=== PATIENT | male | born 1995 | race Caucasian/White ===

== ENCOUNTER 2017-12-15 20:22 | Emergency (ER) | payer OTHER ==
--- NOTE | 2017-12-15 20:52 | ERPHSYRPT ---
- History of Present Illness Time Seen by Provider: 12/15/17 20:47 Source: patient Exam Limitations: no limitations Patient Subjective Stated Complaint: pt states he got drunk last night and was told he fell several times. states when he woke up he was having pain in his lt ribs. Triage Nursing Assessment: pt alert and oriented, asnwers questions approp. pt ambulatory with steady gait noted. pt holding lt ribs. respirations nonlabored with lungs cta. Physician History: The patient is a 22-year-old male who comes in complaining that he got drunk for the first time last night and was told that he had fallen several times. He woke up today around 2 PM and noticed that his left ribs were hurting. He also noticed that his left abdomen was hurting. He says his left back also hurts. He vomited last night. He vomited this morning. He has not vomited the rest of the day. His past medical history is unremarkable. Occurred: yesterday Reason for Fall: lost balance (from alcohol consumption), fell from standing pos Injuries/Pain Location: chest, abdomen, back Loss of Consciousness: unsure Quality: aching Severity of Pain-Max: moderate Severity of Pain-Current: moderate Modifying Factors: Improves With: pain medication (ibuprofen) Associated Symptoms (Fall): abdominal pain, back pain, chest pain (rib pain), nausea, vomiting Allergies/Adverse Reactions: No Known Drug Allergies Allergy (Verified 12/15/17 20:46) Home Medications: Cetirizine HCl [Zyrtec] 10 mg PO DAILY 12/15/17 [History] Hx Tetanus, Diphtheria Vaccination/Date Given: Yes Hx Influenza Vaccination/Date Given: No Hx Pneumococcal Vaccination/Date Given: No Immunizations Up to Date: Yes - Review of Systems Constitutional: No Fever, No Chills Eyes: No Symptoms Ears, Nose, & Throat: No Symptoms Respiratory: No Cough, No Dyspnea Cardiac: Chest Pain Abdominal/Gastrointestinal: Abdominal Pain, Nausea, Vomiting Genitourinary Symptoms: No Dysuria Musculoskeletal: Fall, Injury Skin: No Rash Neurological: No Dizziness, No Focal Weakness, No Sensory Changes Psychological: No Symptoms Endocrine: No Symptoms Hematologic/Lymphatic: No Symptoms Immunological/Allergic: No Symptoms All Other Systems: Reviewed and Negative - Past Medical History Pertinent Past Medical History: Yes Respiratory History: Asthma - Past Surgical History Past Surgical History: No - Social History Smoking Status: Never smoker Exposure to second hand smoke: No Patient Lives Alone: No - Nursing Vital Signs Nursing Vital Signs: Initial Vital Signs Temperature 99 F 12/15/17 20:39 Blood Pressure 133/75 12/15/17 20:39 Pain Scale Pain Intensity 6 - Farhan Coma Score Best Eye Response (Farhan): (4) open spontaneously Best Verbal Response ([place]ounds): (5) oriented Best Motor Response (Farhan): (6) obeys commands [place] Total: 15 - Physical Exam General Appearance: no apparent distress, alert Head Injury: no evidence of injury Eye Exam: PERRL/EOMI ENT Exam: airway nml Neck Exam: normal inspection, No tenderness Respiratory/Chest Exam: normal breath sounds, rib tenderness (left lower ribs), No ecchymosis, No palpable fracture Cardiovascular Exam: normal heart sounds, regular rate/rhythm Gastrointestinal Exam: tenderness (LUQ) Rectal Exam: not done Extremity Exam: normal inspection, normal range of motion, pelvis stable, No deformities Neurologic Exam: alert, oriented x 3, cooperative, sensation nml, No motor deficits Skin Exam: normal color, warm, dry SpO2 Interpretation: normal Oxygen Delivery: Room Air - Radiology Exams Chest X-ray Interpretation: Interpreted by me, Negative, No Pneumothorax Left Ribs X-ray Interpretation: Interpreted by me, Negative, No Fracture, No Pneumothorax Abdomen X-ray Interpretation: Interpreted by me, Negative Ordered Tests: Active Orders 24 hr Category Date Time Status Clean Catch Urine Specimen STAT Care 12/15/17 20:52 Active IV Insertion STAT Care 12/15/17 20:52 Active CHEST 2 VIEWS (PA AND LAT) Stat Exams 12/15/17 21:21 Taken KUB Stat Exams 12/15/17 20:52 Taken RIBS UNILATERAL Stat Exams 12/15/17 20:53 Taken CBC W DIFF Stat Lab 12/15/17 21:00 Completed CMP Stat Lab 12/15/17 21:00 Completed LIPASE Stat Lab 12/15/17 21:00 Completed UA W/RFX UR CULTURE Stat Lab 12/15/17 21:49 Ordered Medication Summary Discontinued Medications Generic Name Dose Route Start Last Admin Trade Name Freq PRN Reason Stop Dose Admin Sodium Chloride 1,000 mls @ 999 mls/hr 12/15/17 20:52 12/15/17 21:13 Sodium Chloride 0.9% 1000 Ml IV 12/15/17 21:52 999 mls/hr .Q1H1M STA Administration Sodium Chloride Confirm 12/15/17 21:09 Sodium Chloride 0.9% 1000 Ml Administered 12/15/17 21:10 Dose 1,000 mls @ ud .ROUTE .STK-MED ONE Ketorolac Tromethamine 30 mg 12/15/17 20:52 12/15/17 21:13 Toradol 30 Mg Injection IV 12/15/17 20:53 30 mg STAT ONE Administration Ketorolac Tromethamine Confirm 12/15/17 21:09 Toradol 30 Mg Injection Administered 12/15/17 21:10 Dose 30 mg .ROUTE .STK-MED ONE Ondansetron HCl 4 mg 12/15/17 20:52 12/15/17 21:13 Zofran 4 Mg/2 Ml Vial IV 12/15/17 20:53 4 mg STAT ONE Administration Ondansetron HCl Confirm 12/15/17 21:09 Zofran 4 Mg/2 Ml Vial Administered 12/15/17 21:10 Dose 4 mg .ROUTE .STK-MED ONE Lab/Rad Data: Laboratory Result Diagrams 12/15/17 21:00 12/15/17 21:00 Laboratory Results 12/15/17 12/15/17 Range/Units 21:00 21:00 WBC 9.6 (4.0-10.5) K/mm3 RBC 5.56 (4.1-5.6) M/mm3 Hgb 15.8 (12.5-18.0) gm/dl Hct 45.5 (42-50) % MCV 81.8 (78-100) fl MCH 28.4 (26-32) pg MCHC 34.7 (32-36) g/dl RDW 13.3 (11.5-14.0) % Plt Count 212 (150-450) K/mm3 MPV 10.6 H (6-9.5) fl Gran % 66.3 H (36.0-66.0) % Eos # (Auto) 0.31 (0-0.5) Absolute Lymphs (auto) 2.02 (1.0-4.6) Absolute Monos (auto) 0.87 (0.0-1.3) Lymphocytes % 21.1 L (24.0-44.0) % Monocytes % 9.1 (0.0-12.0) % Eosinophils % 3.2 (0.00-5.0) % Basophils % 0.3 (0.0-0.4) % Absolute Granulocytes 6.33 (1.4-6.9) Basophils # 0.03 (0-0.4) Sodium 146 H (137-145) mmol/L Potassium 4.0 (3.5-5.1) mmol/L Chloride 108 H (98-107) mmol/L Carbon Dioxide 26 (22-30) mmol/L Anion Gap 15.9 H (5-15) MEQ/L BUN 15 (9-20) mg/dL Creatinine 1.04 (0.66-1.25) mg/dL Estimated GFR > 60.0 ML/MIN Glucose 90 (74-106) mg/dL Calcium 9.7 (8.4-10.2) mg/dL Total Bilirubin 0.60 (0.2-1.3) mg/dL AST 23 (17-59) U/L ALT 20 (0-50) U/L Alkaline Phosphatase 64 (38-126) U/L Serum Total Protein 8.3 H (6.3-8.2) g/dL Albumin 4.7 (3.5-5.0) g/dL Lipase 114 (23-300) U/L - Progress Progress: improved Counseled pt/family regarding: diagnosis, rad results - Departure Time of Disposition: 21:58 Departure Disposition: Home Clinical Impression: Contusion of rib on left side Condition: Stable Critical Care Time: No Referrals: DOCTOR,NO FAMILY [Primary Care Provider] - Additional Instructions: You have a contusion to your left rib cage. Your xrays did not show any broken ribs. You were given Toradol 30 mg, Zofran 4 mg, and fluids by IV in the ER. Take Tylenol 1000 mg and ibuprofen 800 mg every 8 hours as needed. Follow-up with your primary care physician if no better after 1 day.
[2017-12-15] MEDS ORDERED: Sodium Chloride 0.9% 1000 ML 1,000 ML ONE (21:09)
[2017-12-15] MEDS ORDERED: Zofran 4 MG/2 ML VIAL ONE (21:09)
[2017-12-15] MEDS ORDERED: TORAdol 30 mg Injection ONE (21:09)
[2017-12-15] MEDS: Zofran 4 MG/2 ML VIAL IV ONE (21:13)
[2017-12-15] MEDS: TORAdol 30 mg Injection IV ONE (21:13)
[2017-12-15] MEDS: Sodium Chloride 0.9% 1000 ML 1,000 ML IV STA (21:13)
[2017-12-15 21:20] LABS: BASOPHIL % 0.3 % (0.0-0.4); Basophil (Absolute #) 0.03 (0-0.4); Eosinophil % 3.2 % (0.00-5.0); Eosinophil (Absolute #) 0.31 (0-0.5); Granulocyte Absolute (ANC) 6.33 (1.4-6.9); Granulocytes % 66.3 % (36.0-66.0); Hematocrit 45.5 % (42-50); Hemoglobin 15.8 gm/dl (12.5-18.0); Lymphocyte (Absolute #) 2.02 (1.0-4.6); Lymphocytes % 21.1 % (24.0-44.0); Mean Cell Volume 81.8 fl (78-100); Mean Corpuscular Hemoglobin 28.4 pg (26-32); Mean Corpuscular Hgb Concent. 34.7 g/dl (32-36); Mean Platelet Volume 10.6 fl (6-9.5); Monocyte (Absolute #) 0.87 (0.0-1.3); Monocytes % 9.1 % (0.0-12.0); Platelet Count 212 K/mm3 (150-450); Red Blood Count 5.56 M/mm3 (4.1-5.6); Red Cell Distribution Width 13.3 % (11.5-14.0); White Blood Count 9.6 K/mm3 (4.0-10.5)
[2017-12-15 21:36] LABS: ALBUMIN 4.7 g/dL (3.5-5.0); ALKALINE PHOSPHATASE 64 U/L (38-126); ANION GAP 15.9 MEQ/L (5-15); BLOOD UREA NITROGEN 15 mg/dL (9-20); CHLORIDE 108 mmol/L (98-107); Calcium 9.7 mg/dL (8.4-10.2); Carbon Dioxide 26 mmol/L (22-30); Creatinine 1 1.04 mg/dL (0.66-1.25); Glucose 90 mg/dL (74-106); LIPASE 114 U/L (23-300); SGOT/AST 23 U/L (17-59); SGPT/ALT 20 U/L (0-50); SODIUM 146 mmol/L (137-145); Total Protein 8.3 g/dL (6.3-8.2)
[2017-12-15 22:31] LABS: Appearance CLEAR (CLEAR); Bilirubin NEGATIVE (NEGATIVE); Blood NEGATIVE Ery/ul (0-5); Glucose NEGATIVE (NEGATIVE); Ketones NEGATIVE (NEGATIVE); Leukocyte Esterase NEGATIVE (NEGATIVE); Nitrite NEGATIVE (NEGATIVE); Protein,Urine Dip NEGATIVE (Negative); Specific Gravity 1.015 (1.005-1.025); Urobilinogen NORMAL mg/dL (0-1)
[2017-12-15 23:31] VITALS: BP 122/74; PULSE 72; O2SAT 97
--- NOTE | 2017-12-16 08:34 | XRAY ---
Indication: Left sided pain following fall. Comparison: None PA/lateral chest demonstrates normal heart, lungs, and bony thorax.
--- NOTE | 2017-12-16 08:34 | XRAY ---
Indication: Pain following fall. Comparison: None 2 views of the left ribs obtained. No bony, articular, or soft tissue abnormalities.
--- NOTE | 2017-12-16 08:34 | XRAY ---
Indication: Left sided pain following fall. Comparison: None KUB nonacute and nonobstructed. Solid organs and osseous structures unremarkable.
== END 2017-12-15 23:31 | disposition home or self-care (01) ==
LOC: EDBD 20:22 → ED 20:22
DX: S20.20XA Contusion of thorax, unspecified, initial encounter (principal); R07.9 Chest pain, unspecified; R10.9 Unspecified abdominal pain; M54.9 Dorsalgia, unspecified; R11.2 Nausea with vomiting, unspecified; W19.XXXA Unspecified fall, initial encounter
CPT/HCPCS: 36000; 36415; 71046; 71100; 74018; 80053; 81002; 83690; 85025; 96360; 96361; 96372; 96374; 99284; J1885; J2405

== ENCOUNTER 2018-01-18 21:39 | Emergency (ER) | payer OTHER ==
--- NOTE | 2018-01-18 22:51 | ERPHSYRPT ---
- History of Present Illness Time Seen by Provider: 01/18/18 22:42 Historian: patient Exam Limitations: no limitations Patient Subjective Stated Complaint: chest pain that radiates to the back Triage Nursing Assessment: Ptg A&O x3, c/o of pain in mid upper portion of abdomen and states that it radiates to the back, lightheadedness, pulses normal , bowel sounds heard in all 4 quadrants, vitals wnl with the exception of respirations fluctuating between 20-26 Physician History: The patient is a 22-year-old male complaining of a sudden onset of epigastric pain with a funny taste in his mouth while he was lying in bed about an hour and a half ago. The pain has lessened since being in the ER and sitting upright. He has not eaten in the last 9 or 10 hours. He denies nausea or vomiting. 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 His past medical history is unremarkable. Timing/Duration: today, hour(s) (07 21/2), sudden, improved Activities at Onset: rest Quality: burning, sharpness Abdominal Pain Onset Location: epigastric Pain Radiation: back Severity of Pain-Max: moderate Severity of Pain-Current: mild Modifying Factors: Improves With: nothing Associated Symptoms: denies symptoms Previous symptoms: no prior history Allergies/Adverse Reactions: No Known Drug Allergies Allergy (Verified 01/18/18 21:58) Home Medications: No Reportable Medications [No Reported Medications] 01/18/18 [History] Hx Tetanus, Diphtheria Vaccination/Date Given: Yes Hx Influenza Vaccination/Date Given: No Hx Pneumococcal Vaccination/Date Given: No - Review of Systems Constitutional: No Fever, No Chills Eyes: No Symptoms Ears, Nose, & Throat: No Symptoms Respiratory: No Cough, No Dyspnea Cardiac: No Chest Pain, No Edema, No Syncope Abdominal/Gastrointestinal: Abdominal Pain Genitourinary Symptoms: No Dysuria Musculoskeletal: No Back Pain, No Neck Pain Skin: No Rash Neurological: No Dizziness, No Focal Weakness, No Sensory Changes Psychological: No Symptoms Endocrine: No Symptoms Hematologic/Lymphatic: No Symptoms Immunological/Allergic: No Symptoms All Other Systems: Reviewed and Negative - Past Medical History Pertinent Past Medical History: Yes Respiratory History: Asthma - Past Surgical History Past Surgical History: No - Social History Smoking Status: Never smoker Exposure to second hand smoke: No Drug Use: none Patient Lives Alone: No - Nursing Vital Signs Nursing Vital Signs: Initial Vital Signs Temperature 98.2 F 01/18/18 21:47 Pulse Rate 73 01/18/18 21:47 Respiratory Rate 20 01/18/18 21:47 Blood Pressure 117/76 01/18/18 21:47 O2 Sat by Pulse Oximetry 100 01/18/18 21:47 Pain Scale Pain Intensity 6 - Physical Exam General Appearance: mild distress Eye Exam: PERRL/EOMI, eyes nml inspection Ears, Nose, Throat Exam: normal ENT inspection, pharynx normal, moist mucous membranes Neck Exam: normal inspection, non-tender, supple, full range of motion Respiratory Exam: normal breath sounds, lungs clear, No respiratory distress Cardiovascular Exam: regular rate/rhythm, normal heart sounds Gastrointestinal/Abdomen Exam: tenderness (epigastric) Rectal Exam: not done Back Exam: normal inspection, normal range of motion, No CVA tenderness, No vertebral tenderness Extremity Exam: normal inspection, normal range of motion, pelvis stable Neurologic Exam: alert, oriented x 3, cooperative, normal mood/affect, nml cerebellar function, sensation nml, No motor deficits Skin Exam: normal color, warm, dry SpO2 Interpretation: normal SpO2: 98 Oxygen Delivery: Room Air - Course EKG Interpreted by Me: RATE, Sinus Rhythm, NORMAL AXIS, NORMAL INTERVALS, NORMAL QRS, NORMAL ST-T - Radiology Exams Chest X-ray Interpretation: Interpreted by me, Negative Abdomen X-ray Interpretation: Interpreted by me, Negative Ordered Tests: Active Orders 24 hr Category Date Time Status EKG-ER Only STAT Care 01/18/18 22:54 Active IV Insertion STAT Care 01/18/18 22:54 Active CHEST 2 VIEWS (PA AND LAT) Stat Exams 01/18/18 22:54 Taken KUB Stat Exams 01/18/18 22:56 Taken CBC W DIFF Stat Lab 01/18/18 22:54 Completed CMP Stat Lab 01/18/18 22:54 Completed LIPASE Stat Lab 01/18/18 22:54 Completed TROPONIN Q3H Lab 01/18/18 23:00 Completed TROPONIN Q3H Lab 01/19/18 02:00 Ordered TROPONIN Q3H Lab 01/19/18 05:00 Ordered TROPONIN Q3H Lab 01/19/18 08:00 Ordered TROPONIN Q3H Lab 01/19/18 11:00 Ordered Medication Summary Discontinued Medications Generic Name Dose Route Start Last Admin Trade Name Karan PRN Reason Stop Dose Admin Al Hydrox/Mg Hydrox/Simethicone Confirm 01/18/18 23:02 Maalox Es 30 Ml Unit Dose Administered 01/18/18 23:03 Dose 30 ml .ROUTE .STK-MED ONE Famotidine 20 mg 01/18/18 22:54 01/18/18 23:09 Pepcid 20 Mg Vial IV 01/18/18 22:55 20 mg STAT ONE Administration Famotidine Confirm 01/18/18 23:01 Pepcid 20 Mg Vial Administered 01/18/18 23:02 Dose 20 mg IV .STK-MED ONE Sodium Chloride 1,000 mls @ 999 mls/hr 01/18/18 22:54 01/18/18 23:10 Sodium Chloride 0.9% 1000 Ml IV 01/18/18 23:54 999 mls/hr .Q1H1M STA Administration Sodium Chloride Confirm 01/18/18 23:02 Sodium Chloride 0.9% 1000 Ml Administered 01/18/18 23:03 Dose 1,000 mls @ ud .ROUTE .STK-MED ONE Lidocaine HCl Confirm 01/18/18 23:02 Xylocaine Hcl Viscous * Administered 01/18/18 23:03 Dose 15 ml .ROUTE .STK-MED ONE Magnesium Hydroxide 45 ml 01/18/18 22:54 01/18/18 23:09 Gi Cocktail 45 Ml (Maalox/Lidocaine) PO 01/18/18 22:55 45 ml STAT ONE Administration Ondansetron HCl 4 mg 01/18/18 22:54 01/18/18 23:10 Zofran 4 Mg/2 Ml Vial IV 01/18/18 22:55 4 mg STAT ONE Administration Ondansetron HCl Confirm 01/18/18 23:01 Zofran 4 Mg/2 Ml Vial Administered 01/18/18 23:02 Dose 4 mg .ROUTE .STK-MED ONE Lab/Rad Data: Laboratory Result Diagrams 01/18/18 22:54 01/18/18 22:54 Laboratory Results 01/18/18 01/18/18 01/18/18 Range/Units 23:00 22:54 22:54 WBC 6.0 (4.0-10.5) K/mm3 RBC 5.49 (4.1-5.6) M/mm3 Hgb 15.7 (12.5-18.0) gm/dl Hct 45.0 (42-50) % MCV 82.0 (78-100) fl MCH 28.6 (26-32) pg MCHC 34.9 (32-36) g/dl RDW 13.6 (11.5-14.0) % Plt Count 195 (150-450) K/mm3 MPV 11.1 H (6-9.5) fl Gran % 48.7 (36.0-66.0) % Eos # (Auto) 0.29 (0-0.5) Absolute Lymphs (auto) 2.27 (1.0-4.6) Absolute Monos (auto) 0.50 (0.0-1.3) Lymphocytes % 37.9 (24.0-44.0) % Monocytes % 8.3 (0.0-12.0) % Eosinophils % 4.8 (0.00-5.0) % Basophils % 0.3 (0.0-0.4) % Absolute Granulocytes 2.91 (1.4-6.9) Basophils # 0.02 (0-0.4) Sodium 144 (137-145) mmol/L Potassium 4.0 (3.5-5.1) mmol/L Chloride 107 (98-107) mmol/L Carbon Dioxide 26 (22-30) mmol/L Anion Gap 14.6 (5-15) MEQ/L BUN 13 (9-20) mg/dL Creatinine 0.91 (0.66-1.25) mg/dL Estimated GFR > 60.0 ML/MIN Glucose 89 (74-106) mg/dL Calcium 9.6 (8.4-10.2) mg/dL Total Bilirubin 0.50 (0.2-1.3) mg/dL AST 21 (17-59) U/L ALT 17 (0-50) U/L Alkaline Phosphatase 57 (38-126) U/L Troponin I < 0.012 (0.000-0.034) ng/mL Serum Total Protein 8.0 (6.3-8.2) g/dL Albumin 4.7 (3.5-5.0) g/dL Lipase 137 (23-300) U/L - Progress Progress: improved Progress Note: 01/19/18 00:06 GI cocktail resolved pain. Counseled pt/family regarding: lab results, diagnosis, rad results - Departure Time of Disposition: 00:07 Departure Disposition: Home Clinical Impression: Reflux gastritis Condition: Stable Critical Care Time: No Referrals: DOCTOR,NO FAMILY [Primary Care Provider] - Additional Instructions: You had an episode of gastric reflux. You were given a GI cocktail in the ER. For periodic reflux take [id number] Tums, Maalox, or Zantac. Try not to eat at least 2 hours before going to bed. Follow-up with your primary medical doctor as needed.
[2018-01-18] MEDS ORDERED: Sodium Chloride 0.9% 1000 ML 1,000 ML IV STA (22:54)
[2018-01-18] MEDS ORDERED: Zofran 4 MG/2 ML VIAL IV ONE (22:54)
[2018-01-18] MEDS ORDERED: Pepcid 20 MG VIAL IV ONE ×2 (22:54→23:01)
[2018-01-18] MEDS ORDERED: GI COCKTAIL 45 ML (Maalox/Lidocaine) PO ONE (22:54)
[2018-01-18] MEDS ORDERED: Zofran 4 MG/2 ML VIAL ONE (23:01)
[2018-01-18] MEDS ORDERED: Sodium Chloride 0.9% 1000 ML 1,000 ML ONE (23:02)
[2018-01-18] MEDS ORDERED: XYLOCAINE HCl Viscous ONE (23:02)
[2018-01-18] MEDS ORDERED: MAALOX ES 30 ML UNIT DOSE ONE (23:02)
[2018-01-18 23:24] LABS: BASOPHIL % 0.3 % (0.0-0.4); Basophil (Absolute #) 0.02 (0-0.4); Eosinophil % 4.8 % (0.00-5.0); Eosinophil (Absolute #) 0.29 (0-0.5); Granulocyte Absolute (ANC) 2.91 (1.4-6.9); Granulocytes % 48.7 % (36.0-66.0); Hemoglobin 15.7 gm/dl (12.5-18.0); Lymphocyte (Absolute #) 2.27 (1.0-4.6); Lymphocytes % 37.9 % (24.0-44.0); Mean Corpuscular Hemoglobin 28.6 pg (26-32); Mean Corpuscular Hgb Concent. 34.9 g/dl (32-36); Mean Platelet Volume 11.1 fl (6-9.5); Monocytes % 8.3 % (0.0-12.0); Platelet Count 195 K/mm3 (150-450); Red Blood Count 5.49 M/mm3 (4.1-5.6); Red Cell Distribution Width 13.6 % (11.5-14.0)
[2018-01-18 23:30] LABS: ALBUMIN 4.7 g/dL (3.5-5.0); ALKALINE PHOSPHATASE 57 U/L (38-126); ANION GAP 14.6 MEQ/L (5-15); BLOOD UREA NITROGEN 13 mg/dL (9-20); CHLORIDE 107 mmol/L (98-107); Calcium 9.6 mg/dL (8.4-10.2); Carbon Dioxide 26 mmol/L (22-30); Creatinine 1 0.91 mg/dL (0.66-1.25); Glucose 89 mg/dL (74-106); LIPASE 137 U/L (23-300); SGOT/AST 21 U/L (17-59); SGPT/ALT 17 U/L (0-50); SODIUM 144 mmol/L (137-145)
[2018-01-19 00:17] VITALS: BP 134/68; PULSE 63; O2SAT 99
--- NOTE | 2018-01-19 08:44 | XRAY ---
Indication: Epigastric pain. Comparison: December 15, 2017. KUB again nonacute and nonobstructed. Solid organs and osseous structures unremarkable. No new/acute findings.
--- NOTE | 2018-01-19 08:44 | XRAY ---
Indication: Epigastric pain. Comparison: December 15, 2017. PA/lateral chest again demonstrates normal heart, lungs, and bony thorax.
== END 2018-01-19 00:20 | disposition home or self-care (01) ==
LOC: ED 21:39
DX: K29.60 Other gastritis without bleeding (principal); R10.13 Epigastric pain
CPT/HCPCS: 36000; 36415; 71046; 74018; 80053; 83690; 84484; 85025; 93005; 96374; 96375; 99284; J2405; A9270-GY